=== PATIENT | female | born 1960 | race Caucasian/White ===

== ENCOUNTER 2019-01-27 02:14 | Emergency (ER) | payer MEDICAID ==
[~2019-01-27] VITALS: Ht 124.5 cm; Wt 57.2 kg
--- NOTE | 2019-01-27 02:15 | NUR ---
PT BIBA FOR HEADACHE X 30 MIN. PER PT SHE WAS AT A TRAIN STATION PLAYING A GAME ON HER CELLPHONE WHEN THE ONSET OF THE SANTIAGO OCCURED. PT LAST PAIN LEVEL 10/10 TO THE BACK OF THE RIGHT SIDE OF HEAD. PT BP IS 216/108. PT LAST DOSE OF HTN RX WAS LISINOPRIL AT [facility] BEFORE DISCHARGE. PT DENIES ANY TRAUMA OR FALL TO THE HEAD. PT DENIES VISION CHANGES. PT DOES HAVE NAUSEA, NO VOMITING. ALLERGIES: SULFA DRUGS AND ROBAXIN. MED HX: HTN, FIBROMYALGIA, PTSD, AND DIVERTICULITIS. SAFETY MEASURES IN PLACE. ERMD AT BEDSIDE
[2019-01-27 02:16] VITALS: BP 216/108
[2019-01-27] MEDS ORDERED: LABETALOL 100 MG/20 ML VIAL IVP ONE (02:20)
--- NOTE | 2019-01-27 02:24 | NUR ---
EKG PERFORMED AT BEDSIDE
[2019-01-27 02:39] LABS: ANION GAP 12.7 (8-16); CREATININE 0.6 mg/dL (0.6-1.3); POTASSIUM 3.7 mmol/L (3.5-5.1)
--- NOTE | 2019-01-27 02:55 | NUR ---
PT BACK FROM CT VIA WHEELCHAIR
--- NOTE | 2019-01-27 02:56 | NUR ---
HOMELESS PATIENT RESOURCES PACKET WAS PROVIDED FOR PT.
[2019-01-27 03:18] LABS: BASOPHILS # (AUTO) 0.1 K/uL (0.00-0.22); EOSINOPHILS # (AUTO) 0.2 K/uL (0-0.4); EOSINOPHILS % (AUTO) 1.3 % (0.0-4.0); HEMATOCRIT 44.3 % (36-48); HEMOGLOBIN 14.6 g/dL (12.0-16.0); LYMPHOCYTES # (AUTO) 4.3 K/uL (2.5-16.5); LYMPHOCYTES % (AUTO) 29.3 % (20.5-51.1); MEAN CORPUSCULAR HEMOGLOBIN 31 pg (27-31); MEAN CORPUSCULAR HGB CONC 33 g/dL (33-37); MEAN CORPUSCULAR VOLUME 94.9 fL (80-94); MONOCYTES # (AUTO) 1.2 K/uL (0.8-1.0); MONOCYTES % (AUTO) 8.2 % (1.7-9.3); NEUTROPHILS # (AUTO) 8.8 K/uL (1.8-7.7); NEUTROPHILS % (AUTO) 60.2 % (42.2-75.2); PLATELET COUNT (AUTO) 340 K/uL (140-450); RED BLOOD CELL COUNT(AUTO) 4.67 MIL/uL (4.20-5.40); WHITE BLOOD COUNT (AUTO) 14.6 K/uL (4.8-10.8)
--- NOTE | 2019-01-27 03:30 | NUR ---
PT RESTING IN BED WITH EYES CLOSED, EASILY ARROUSABLE. VSS. WILL CONTINUE TO MONITOR.
--- NOTE | 2019-01-27 04:30 | NUR ---
PT RESTING COMFORTABLY. VSS. WILL CONTINUE TO MONITOR.
--- NOTE | 2019-01-27 05:53 | NUR ---
PT RESTING IN BED. VSS. NO CONCERNS AT THIS TIME. WILL CONTINUE TO MONITOR.
[2019-01-27 06:20] VITALS: BP 134/77
--- NOTE | 2019-01-27 06:20 | NUR ---
Patient discharged with v/s stable. Written and verbal after care instructions given and explained. Pt instructed to drink plenty of fluids and to take htn medication as prescribed. Patient verbalized understanding. Ambulatory with steady gait. All questions addressed prior to discharge. Advised to follow up with PMD.
== END 2019-01-27 06:20 | disposition home or self-care (01) ==
LOC: MED 02:14
DX: I16.0 Hypertensive urgency (principal); R51 Headache; R11.0 Nausea; Z88.8 Allergy status to other drugs, medicaments and biological substances
CPT/HCPCS: 36415; 70450; 80048; 84484; 85025; 93005; 96374; 99284; J3490

== ENCOUNTER 2019-05-09 09:25 | Emergency (ER) | payer MEDICAID ==
[~2019-05-09] VITALS: Ht 149.9 cm; Wt 58.6 kg
[2019-05-09 10:04] VITALS: BP 187/85
--- NOTE | 2019-05-09 10:07 | NUR ---
AMBULATES BACK TO THE LOBBY
--- NOTE | 2019-05-09 11:27 | NUR ---
PATIENT AMBULATED TO BED 1.
--- NOTE | 2019-05-09 11:29 | NUR ---
PT AMBULATED TO RESTROOM TO GIVE URINE SAMPLE WITHOUT DIFFICULTY.
--- NOTE | 2019-05-09 11:32 | NUR ---
59 Y/O F C/O COUGH, NASAL CONGESTION SANTIAGO 6/10 WITH COUGH. PT STATES IS A SMOKER, EATING AND DRINKING NORMAL. UNABLE TO TAKE A DEEP BREATH WITHOUT COUGHING. LUNG SOUND WEEZING THROUGHOUT. DENIES BODY ACHES. PT VS STABLE, 02 97%. POSITIONED IN HIGH FOLWERS, BED LOWEST POSITION, SIDE RAIL X1 IN PLACE. ALLERGIES: METHOCARBAMOL, SULFA MEDHX: HTN, PTSD, FIBROMYALGIA.
--- NOTE | 2019-05-09 11:41 | NUR ---
FLU SWAB PERFORMED, SENT TO LAB.
[2019-05-09] MEDS ORDERED: ALBUTEROL SULFATE/IPRATROPIU 3 ML SOL IH ONE (11:50)
[2019-05-09] MEDS ORDERED: methylPREDNISolone SS 125 MG/2 ML VIAL IVP ONE (11:50)
[2019-05-09 12:49] LABS: BASOPHILS # (AUTO) 0.1 K/uL (0.00-0.22); BASOPHILS % (AUTO) 0.7 % (0.0-2.0); EOSINOPHILS # (AUTO) 0.3 K/uL (0-0.4); EOSINOPHILS % (AUTO) 3.7 % (0.0-4.0); HEMATOCRIT 45.4 % (36-48); HEMOGLOBIN 15.6 g/dL (12.0-16.0); LYMPHOCYTES # (AUTO) 2.5 K/uL (2.5-16.5); LYMPHOCYTES % (AUTO) 30.6 % (20.5-51.1); MEAN CORPUSCULAR HEMOGLOBIN 32 pg (27-31); MEAN CORPUSCULAR HGB CONC 34 g/dL (33-37); MEAN CORPUSCULAR VOLUME 94.1 fL (80-94); MONOCYTES # (AUTO) 0.6 K/uL (0.8-1.0); NEUTROPHILS # (AUTO) 4.8 K/uL (1.8-7.7); PLATELET COUNT (AUTO) 232 K/uL (140-450); RED BLOOD CELL COUNT(AUTO) 4.82 MIL/uL (4.20-5.40); RED CELL DISTRIBUTION WIDTH 13.1 % (11.6-13.7); WHITE BLOOD COUNT (AUTO) 8.3 K/uL (4.8-10.8)
[2019-05-09 13:02] LABS: ANION GAP 14.2 (8-16); CARBON DIOXIDE 24.5 mmol/L (21-32); CREATININE 0.6 mg/dL (0.6-1.3); POTASSIUM 3.7 mmol/L (3.5-5.1)
[2019-05-09 13:18] LABS: APPEARANCE,URINE CLEAR (CLEAR); BILIRUBIN,URINE NEGATIVE (NEGATIVE); BLOOD, URINE 1+ (NEGATIVE); COLOR,URINE YELLOW (YELLOW); LEUKOCYTE ESTERASE ,URINE NEGATIVE (NEGATIVE); NITRITE, URINE NEGATIVE (NEGATIVE); PH,URINE 5.5 (5.0-9.0); UGLUCOSE NEGATIVE (NEGATIVE)
[2019-05-09 13:45] LABS: WBC,URINE 0-5 /HPF (0-5)
[2019-05-09 14:30] VITALS: BP 187/85
--- NOTE | 2019-05-09 14:30 | NUR ---
Patient discharged with v/s stable. Written and verbal after care instructions given and explained. Patient alert, oriented and verbalized understanding of instructions. Ambulatory with steady gait. All questions addressed prior to discharge. ID band removed. Patient advised to follow up with PMD. Rx of ALBUTEROL, TESSALON PERLES, AZITHROMYCIN, PREDISONE given. Patient educated on indication of medication including possible reaction and side effects. Opportunity to ask questions provided and answered.
== END 2019-05-09 14:30 | disposition home or self-care (01) ==
LOC: MED 09:25
DX: J40 Bronchitis, not specified as acute or chronic (principal); J45.909 Unspecified asthma, uncomplicated; I10 Essential (primary) hypertension; F43.10 Post-traumatic stress disorder, unspecified; F17.200 Nicotine dependence, unspecified, uncomplicated; Z90.710 Acquired absence of both cervix and uterus; Z90.49 Acquired absence of other specified parts of digestive tract; Z88.8 Allergy status to other drugs, medicaments and biological substances
CPT/HCPCS: 36415; 71045; 80048; 81001; 84484; 85025; 87804; 93005; 94640; 96374; 99284; J2930; J7620